=== PATIENT | female | born 1995 | race Caucasian/White ===

== ENCOUNTER → 2023-12-23 15:33 | Outpatient (REF) | payer OTHER, SELFPAY | LOC: RAD 15:33 | PROVIDERS: ATTENDING PHYSICIAN Nurse Practitioner Family; FAMILY PHYSICIAN Family Medicine | DX: Z34.90 Encounter for supervision of normal pregnancy, unspecified, unspecified trimester (principal) | CPT/HCPCS: 76801 ==

== ENCOUNTER → 2024-01-12 16:49 | Outpatient (REF) | payer OTHER, SELFPAY | LOC: PNTC 16:49 | PROVIDERS: ATTENDING PHYSICIAN Obstetrics & Gynecology | DX: O09.519 Supervision of elderly primigravida, unspecified trimester (principal); Z36.0 Encounter for antenatal screening for chromosomal anomalies; Z36.82 Encounter for antenatal screening for nuchal translucency | CPT/HCPCS: 76801; 76813 ==

== ENCOUNTER → 2024-03-12 16:10 | Outpatient (REF) | payer OTHER, SELFPAY | LOC: PNTC 16:10 | PROVIDERS: ATTENDING PHYSICIAN Obstetrics & Gynecology | DX: Z34.90 Encounter for supervision of normal pregnancy, unspecified, unspecified trimester (principal) | CPT/HCPCS: 76805 ==

== ENCOUNTER → 2024-05-03 14:56 | Outpatient (REF) | payer OTHER, SELFPAY | LOC: PNTC 14:56 | PROVIDERS: ATTENDING PHYSICIAN Obstetrics & Gynecology | DX: Z34.03 Encounter for supervision of normal first pregnancy, third trimester (principal) | CPT/HCPCS: 36415; 86850; 86900; 86901; 96372; J2790 ==

== ENCOUNTER → 2024-07-31 13:19 | Outpatient (REF) | payer OTHER, SELFPAY | LOC: PNTC 13:19 | PROVIDERS: ATTENDING PHYSICIAN Obstetrics & Gynecology | DX: O48.0 Post-term pregnancy (principal) | CPT/HCPCS: 59025; 76818 ==

== ENCOUNTER 2024-07-31 15:02 | Inpatient (IN) | payer OTHER, SELFPAY ==
[2024-07-31 15:26] VITALS: BP 102/76; BMI 27.1
[2024-07-31] MEDS: LR 1000 IV ×2 (15:52→19:36)
[2024-07-31 16:08] LABS: % Basophils 0.2 % (0-2); % Eosinophils 1.1 % (0-6); % Immature Granulocytes 0.3 % (0-0.5); % Lymphocytes 18.9 % (20.5-51.1); % Monocytes 7.9 % (1.7-9.3); % Neutrophils 71.6 % (42.2-75.2); Absolute Eosinophils 0.1 10^3/uL (0-0.7); Absolute Lymphocytes 1.9 10^3/uL (1.2-3.4); Absolute Monocytes 0.8 10^3/uL (0.1-0.6); Hematocrit 35.6 % (37.0-47.0); Hemoglobin 12.5 g/dL (12.0-16.0); Mean Corp Hgb Conc. 35.1 g/dL (33.0-37.0); Mean Corpuscular Hgb 31.6 pg (27.0-31.0); Mean Corpuscular Volume 89.9 fL (81.0-99.0); Mean Platelet Volume 11.4 fL (7.4-10.4); Nucleated Red Blood Cells % 0 %; Platelet Count 184 10^3/uL (130-400); Red Blood Cell Count 3.96 10^6/uL (4.20-5.40); Red Cell Dist. Width 12.5 % (11.5-14.5); White Blood Cell Count 9.8 10^3/uL (4.8-10.8)
[2024-08-01] MEDS: SUBLIMAZE 100 MCG EPIDURAL (00:59)
[2024-08-01] MEDS: FENTANYL/BUPIVACAINE 100 EPIDURAL (00:59)
[2024-08-01] MEDS: LR 1000 IV ×2 (01:27→03:32)
--- NOTE | 2024-08-01 02:50 | DOWNTIME ---
There was a [employer] Downtime on 08/01/2024 from 0100 to 08/01/2023 at 0235 . Downtime documentation of patient's care, including medication administrations, has been reconciled in the electronic record per guidelines. Refer to the
patient's paper chart under the miscellaneous tab to see printed paper medication records and downtime forms.
[2024-08-01] MEDS: PITOCIN 30 UNITS/NSS 500 ML IV (06:48)
[2024-08-01] MEDS: TYLENOL 650 MG PO (10:08)
[2024-08-01] MEDS: MOTRIN 600 MG PO (14:01)
[2024-08-01] MEDS: PRENATAL PLUS PO (16:13)
[2024-08-02 06:22] LABS: Hematocrit 31.6 % (37.0-47.0); Hemoglobin 10.8 g/dL (12.0-16.0)
[2024-08-02] MEDS: PRENATAL PLUS 1 TABLET PO (11:07)
[2024-08-02] MEDS: MOTRIN 600 MG PO ×2 (15:21→21:32)
[2024-08-02] MEDS: SENOKOT-S 1 TABLET PO (15:21)
[2024-08-02] MEDS: FEOSOL 325 MG PO (15:21)
[2024-08-02] MEDS: RHOGAM 300 MCG IM (18:38)
[2024-08-03] MEDS: FEOSOL 325 MG PO (07:37)
[2024-08-03] MEDS: PRENATAL PLUS 1 TABLET PO (07:37)
[2024-08-03] MEDS: MOTRIN 600 MG PO (07:38)
[2024-08-03] MEDS: SENOKOT-S 1 TABLET PO (07:38)
[2024-08-03 13:48] LABS: Syphilis/T. pallidum Ab Reflex Negative (Negative)
== END 2024-08-03 12:54 | disposition home or self-care (01) | DRG 807 ==
LOC: LDRP 15:02
PROVIDERS: Obstetrics & Gynecology; ADMITTING PHYSICIAN Student in an Organized Health Care Education/Training Program
PROC: 3E033VJ Introduction of Other Hormone into Peripheral Vein, Percutaneous Approach (ICD-10-PCS; 2024-07-31)
PROC: 10907ZC Drainage of Amniotic Fluid, Therapeutic from Products of Conception, Via Natural or Artificial Opening (ICD-10-PCS; 2024-08-01)
PROC: 0KQM0ZZ Repair Perineum Muscle, Open Approach (ICD-10-PCS; 2024-08-01)
PROC: 10E0XZZ Delivery of Products of Conception, External Approach (ICD-10-PCS; 2024-08-01)
PROC: 3E0234Z Introduction of Serum, Toxoid and Vaccine into Muscle, Percutaneous Approach (ICD-10-PCS; 2024-08-02)
DX: O48.0 Post-term pregnancy (principal); Z37.0 Single live birth; Z3A.41 41 weeks gestation of pregnancy; O70.1 Second degree perineal laceration during delivery; O76 Abnormality in fetal heart rate and rhythm complicating labor and delivery
CPT/HCPCS: 36415; 59025; 85014; 85018; 85025; 85461; 86780; 86850; 86870; 86900; 86901; J2790